=== PATIENT | male | born 1960 | race Caucasian/White ===

== ENCOUNTER → 2016-05-27 | Outpatient (CLI) | payer BC ==
[2016-05-27 10:45] LABS: BASO % 0.7 %; BASO ABS # 0.05 K/uL (0-0.2); COMPLETE YES; EOS % 2.3 %; HEMATOCRIT 43.3 % (42-52); IG% 0.4 %; LYMPH % 22.9 %; LYMPH ABS # 1.71 K/uL (1.2-3.4); MEAN CELL VOLUME 86.9 fL (80-100); MEAN CORPUSCULAR HEMOGLOBIN 29.1 pg (25-34); MEAN CORPUSCULAR HGB CONC 33.5 g/dl (32-36); MEAN PLATELET VOLUME 10.4 fL (7.4-10.4); MONO % 8.4 %; NEUT % 65.3 %; PLATELET COUNT 296 K/uL (130-400); RED BLOOD COUNT 4.98 M/uL (4.7-6.1); WHITE BLOOD COUNT 7.46 K/uL (4.8-10.8)
[2016-05-27 11:00] LABS: ALT/SGPT 27 U/L (12-78); AST/SGOT 16 U/L (15-37); BLOOD UREA NITROGEN 18 mg/dl (7-18); BUN/CREATININE RATIO 16.5 (10-20); CALCIUM 8.8 mg/dl (8.5-10.1); CARBON DIOXIDE 28 mmol/L (21-32); CHLORIDE 106 mmol/L (98-107); CHOLESTEROL 239 mg/dl (0-200); GLUCOSE 92 mg/dl (70-99); SODIUM 143 mmol/L (136-145)
[2016-05-27 11:04] LABS: CHOLESTEROL/HDL RATIO 6.6; HDL CHOLESTEROL 36 mg/dl; LDL CHOLESTEROL CALCULATED 174 mg/dl; TRIGLYCERIDES 146 mg/dl (0-150); VERY LOW DENSITY LIPOPROT CALC 29 mg/dl
== END | disposition home or self-care (01) ==
LOC: C.LABBC 07:45
PROVIDERS: ATTEND Internal Medicine
DX: R06.09 Other forms of dyspnea (principal); Z12.5 Encounter for screening for malignant neoplasm of prostate; E78.5 Hyperlipidemia, unspecified

== ENCOUNTER 2023-02-01 12:10 | Observation (INO) ==
--- NOTE | 2023-01-21 09:32 | Anesthesiology Consultation ---
Date of Service January 21, 2023 Assessment & Plan (1) Encounter for pre-operative examination: Plan - Per printer operator on 01/21/2023: No known infectious disease contacts, current infectious disease symptoms in past 10 days or COVID positive test result in the past 90 days. Chart Review Chart Review: Acceptable Risk for Surgery and Patient NOT seen in Pre Admission Testing History Surgery Operation Date: 02/01/23 07:00 Proposed Procedures p TURP (Transurethral Resection of Prostate) - Mal Galaviz, DO Height/Weight Height: 5 ft 11 in Weight: 88.451 kg Allergies Allergy/AdvReac Type Severity Reaction Status Date / Time atorvastatin AdvReac Mild MUSCLE Verified 01/06/23 13:11 ACHES Medications Home Medications Medication Instructions Recorded Confirmed Last Taken rosuvastatin 5 mg tablet (Crestor) 5 mg PO QAM #90 tabs 03/13/22 01/21/23 Unknown tamsulosin 0.4 mg capsule 0.4 mg PO DAILY #30 caps 03/23/22 01/21/23 Unknown finasteride 5 mg tablet 5 mg PO DAILY #30 tabs 07/28/22 01/21/23 Unknown cholecalciferol (vitamin D3) 25 2,000 unit PO DAILY 09/07/22 01/21/23 Unknown mcg (1,000 unit) capsule Past Medical History Medical History BPH w urinary obs/LUTS Hx of duodenal ulcer AGE 18 Hyperlipidemia Kidney stone hx Motion sickness when on a boat Seasonal allergies Sensorineural hearing loss (SNHL) of right ear with restricted hearing of left ear Past Family History Family History Grandmother (Paternal) Family history of diabetes mellitus Diabetes Mother Cardiac disorder Allergies Stroke Father Lung cancer Brother Hyperlipidemia Hypothyroidism Uncle Myocardial infarction Prostate cancer Denies family history of Ovarian cancer Breast cancer Bleeding disorder Colorectal cancer Past Surgical History Surgical History H/O plastic surgery FROM SERIOUS FACIAL LACERATION-YOUNGER YEARS History of colonoscopy POLYP REMOVED History of herniorrhaphy LEFT INGUINAL HERNIA History of lithotripsy Hx of bilateral cataract extraction Hx of cystoscopy Social History Smoking Status: Former smoker tobacco type: cigarettes Do You Dip or Chew Tobacco: No Smoking End Date: quit 1986 Hx Alcohol Use: Yes Alcohol type: beer and hard liquor alcohol intake frequency: holidays/special occasions only Hx Substance Use: No substance use type: does not use Lab Results Anesthesia Preop Results Results Anesthesia Widget: WBC 6.33 K/ul (4.8-10.8) 01/15/23 Hgb 15.7 g/dl (14.0-18.0) 01/15/23 Hct 47.0 % (42.0-52.0) 01/15/23 Plt 226 K/uL (130-400) 01/15/23 Na 140 mmol/L (136-145) 01/15/23 K 3.9 mmol/L (3.5-5.1) 01/15/23 Cl 102 mmol/L (98-107) 01/15/23 CO2 34 mmol/L (21-32) H 01/15/23 BUN 18 mg/dl (6-23) 01/15/23 Creat 1.13 mg/dl (0.6-1.4) 01/15/23 Glucose Level 87 mg/dl (70-99(Fasting)) 01/15/23 Urine Appearance Clear 01/06/23 Testing Electrocardiogram Date: 01/15/23 NSR, rate 90 bpm Chest X-Ray Date: 01/15/23 No acute process
[~2023-02-01 12:10] MED LIST: LR 15ML/HR IV SCH; ceFAZolin 2000MG 2,000 MG/15 ML SYR IV SCH
--- NOTE | 2023-02-01 12:22 | History & Physical Bridge Note ---
Date of Service February 01, 2023 History & Physical Bridge Note I have examined the patient, reviewed the History & Physical and in the interval since the performance of the History & Physical I have noted the following changes of clinical significance: no changes noted
[2023-02-01] MEDS ORDERED: ONDANSETRON INJ 2 MG/ML 2 ML VIAL IV PRN ×2 (12:23→13:20)
[2023-02-01] MEDS ORDERED: oxyCODONE/ACETAMINOPHEN 5mg/325mg TAB PO PRN (12:23)
[2023-02-01] MEDS ORDERED: PHENAZOPYRIDINE HCL 200 MG TAB PO PRN (12:23)
[2023-02-01] MEDS ORDERED: MoRPHine SULFATE 2 MG/ML CARP IV PRN (12:23)
[2023-02-01] MEDS ORDERED: fentaNYL citrate PF 100 MCG/2 ML VIAL ONE (13:07)
[2023-02-01] MEDS ORDERED: MIDAZOLAM HCL 1 MG/ML 2ML VIAL ONE (13:08)
[2023-02-01] MEDS ORDERED: ePHEDrine sulfate 50 MG/ML AMP IV PRN (13:20)
[2023-02-01] MEDS ORDERED: PROMETHAZINE HCL 12.5 MG in SODIUM CHLORIDE 0.9% 50 ML IV PRN (13:20)
[2023-02-01] MEDS ORDERED: HYDROmorphone INJ 2 MG/ML SYR/VIAL IV PRN (13:20)
[2023-02-01] MEDS ORDERED: fentaNYL citrate PF 100 MCG/2 ML VIAL IV PRN (13:20)
[2023-02-01] MEDS ORDERED: ATROPINE SULFATE 0.1 MG/ML 10ML SYR IV PRN (13:20)
[2023-02-01] MEDS ORDERED: ONDANSETRON INJ 2 MG/ML 2 ML VIAL ONE (13:42)
[2023-02-01] MEDS ORDERED: PROPOFOL IV EMULSION 10 MG/ML 20 ML VIAL IV ONE (13:42)
[2023-02-01] MEDS ORDERED: PHENYLEPHRINE 100MCG/ML 10ML SYR ONE (13:42)
[2023-02-01] MEDS ORDERED: ePHEDrine sulfate 50 MG/5 ML SYR ONE (14:01)
[2023-02-01] MEDS ORDERED: KETOROLAC 30 MG/ML VIAL ONE (14:24)
--- NOTE | 2023-02-01 14:53 | Operative Report ---
PG Post Operative Report Pre & Post Diagnosis Operation Date: 02/01/23 13:40 Pre-Op Diagnosis: Benign Prostate Hypertrophy with Obstruction Post-Op Diagnosis: Benign Prostate Hypertrophy with Obstruction I identified the patient and participated in the time-out.: Yes Procedure Operation Date: 02/01/23 13:40 Actual Procedures p Transurethral Resection of Prostate - Mal Galaviz DO Surgeon Mal Galaviz, II, DO Sailor None Estimated Blood Loss 5 Findings Consistent with Post-Op Diagnosis Large Prostate with obstruction. Specimens Prostate adenoma. Drains 22Fr [address] hematuria Catheter Anesthesia Type General Complications none Disposition Disposition: Recovery Room Indications Patient with obstruction due to prostate enlargement. Risks and benefits discussed at length. Description of Procedure Patient was consented and brought back to the operating room. Patient was placed under anesthesia in the supine position and moved to the dorsal lithotomy position. Patient was prepped and draped in the regular sterile fashion. A time out was completed. A 30degree Cystoscope was placed into the bladder and the entire bladder was examined. The UO's were identified as well as the bladder neck, trigone, dome, and the other important landmarks. The prostatic urethra and large lobes/joe noma was assessed and the veru and bladder neck identified and area/size was assessed. The resection scope was placed and the fine bipolar loop was selected. Starting at the 5 and 7 o'clock positions, a channel was created from bladder neck to the veru. The lateral lobes were then resected from the anterior prostate down. This was resected to capsule fibers. No major bleeding was noted. The Specimen was removed and sent for analysis. The resection bed and any bleeding areas were fulgurated/cauterized and the entire area inspected. All bleeding was controlled. The bladder was inspected a final time. The bladder was emptied and irrigated. All specimen and debris was removed. The scope was removed with the bladder partially full. A catheter was placed and balloon elevated. This was easily irrigated. The patient was cleaned, aroused from anesthesia, and transferred to the pacu in stable condition having tolerated the procedure well with no complications. I was present and participated in all aspects of the procedure. The patient will be monitored in the PACU until transferred. Plan catheter removal in approx 7-10 days in office after discharge. I attest to the content of the Intraoperative Record and any orders documented therein. Any exceptions are noted below.
--- NOTE | 2023-02-01 16:39 | Anesthesiology Progress Note ---
Date of Service February 01, 2023 Anesthesia Post Procedure Vital Signs Vital Signs: Temp Pulse Pulse Resp BP Pulse Ox O2 Del Method 02/01/23 16:30 36.7 C 74 14 92/58 L 92 Room Air 02/01/23 16:00 36.7 C 72 14 91/54 L 92 Room Air 02/01/23 15:50 36.7 C 74 10 L 92/57 L 93 Room Air 02/01/23 15:40 36.7 C 78 14 95/62 L 94 Room Air 02/01/23 15:10 87 25 H 103/69 100 Oxymask 02/01/23 15:30 36.7 C 79 19 95/57 L 94 Room Air 02/01/23 15:20 85 11 L 110/68 98 Oxymask 02/01/23 15:00 90 10 L 111/72 100 Oxymask 02/01/23 14:53 36.5 C 110 H 14 103/70 97 Oxymask 02/01/23 12:24 36.6 C 95 H 20 128/84 98 Room Air O2 Flow Rate 02/01/23 16:30 02/01/23 16:00 02/01/23 15:50 02/01/23 15:40 02/01/23 15:10 2 02/01/23 15:30 02/01/23 15:20 2 02/01/23 15:00 3 02/01/23 14:53 5 02/01/23 12:24 Transfer of Care Handoff Completed per policy Notes Mental Status: alert / awake / arousable and participated in evaluation Patient Amnestic to Procedure: Yes Nausea / Vomiting: adequately controlled Pain: adequately controlled Airway Patency, RR, SpO2: stable & adequate BP & HR: stable & adequate Hydration State: stable & adequate Anesthetic Complications: no major complications apparent and Pt Satisfied with anesthetic care
[2023-02-01 18:28] LABS: Basophils # (auto) 0.06 K/uL (0.00-0.20); Basophils % (auto) 0.5 %; Eosinophils # (auto) 0.06 K/uL (0.00-0.50); Eosinophils % (auto) 0.5 %; Hematocrit (blood only) 40.7 % (42.0-52.0); Hemoglobin 13.8 g/dl (14.0-18.0); Immature Granulocytes # (auto) 0.03 K/uL (0.01-0.20); Immature Granulocytes % (auto) 0.3 %; Lymphocytes # (auto) 0.89 K/uL (1.20-3.40); Lymphocytes % (auto) 7.8 %; Mean Corpuscular Hemoglobin 29.5 pg (25.0-34.0); Mean Corpuscular Hgb Conc 33.9 g/dL (32.0-36.0); Mean Platelet Volume 10.9 fL (9.4-12.4); Monocytes # (auto) 0.42 K/uL (0.11-0.59); Monocytes % (auto) 3.7 %; Neutrophils # (auto) 9.98 K/uL (1.40-6.50); Neutrophils % (auto) 87.2 %; Platelet Count 199 K/uL (130-400); RDW Coefficient of Variation 13.2 % (11.5-14.5); RDW Standard Deviation 41.5 fL (36.4-46.3); Red Blood Count 4.68 M/uL (4.70-6.10); White Blood Count 11.44 K/ul (4.8-10.8)
[2023-02-01] MEDS: SODIUM CHLORIDE 0.9% 1,000 ML IV SCH (18:28)
[2023-02-01] MEDS: TAMSULOSIN HCL 0.4 MG CAP PO SCH (18:32)
[2023-02-01 18:41] LABS: Albumin Globulin Ratio 1.6 (0.9-2); Albumin Level 4.1 gm/dl (3.4-5.0); BUN Creatinine Ratio 11.7 (10-20); Bilirubin,Total 0.5 mg/dl (0.2-1.0); Calcium 8.5 mg/dl (8.6-10.3); Creatinine Clr Calc Pharmacy 75.4 ml/min; Est GFR (African American) 83.2 ml/min; Est GFR (Non-African American) 71.8 ml/min; Globulin 2.5 gm/dl (2.5-4.0); Potassium 4.2 mmol/L (3.5-5.1); Total Protein 6.6 gm/dl (6.0-8.3)
[2023-02-01] MEDS: DOCUSATE SODIUM 100 MG CAP PO SCH (21:52)
[2023-02-01] MEDS: ceFAZolin 2000MG 2,000 MG/15 ML SYR IV SCH (21:52)
[2023-02-01] MEDS: oxyBUTYnin chloride 5 MG TAB PO PRN (21:52)
[2023-02-02] MEDS: ceFAZolin 2000MG 2,000 MG/15 ML SYR IV SCH ×2 (05:29→13:41)
[2023-02-02] MEDS: SODIUM CHLORIDE 0.9% 1,000 ML IV SCH (08:01)
[2023-02-02] MEDS: DOCUSATE SODIUM 100 MG CAP PO SCH (08:27)
[2023-02-02] MEDS: TAMSULOSIN HCL 0.4 MG CAP PO SCH (08:28)
[2023-02-02] MEDS: oxyBUTYnin chloride 5 MG TAB PO PRN (08:29)
[2023-02-02] MEDS ORDERED: ROSUVASTATIN CALCIUM 5 MG TAB PO SCH (09:00)
--- NOTE | 2023-02-02 09:49 | Urology Progress Note ---
Date of Service February 02, 2023 Assessment & Plan (1) BPH w urinary obs/LUTS: Plan - Pt POD#1 s/p TURP with Dr. Galaviz. - Doing well, progressing as expected - Afebrile and hemodynamically stable. - Labs reviewed 02/01 WBC 11.44, hemoglobin 13.8, creatinine 1.11. - 3 way Leone catheter intact, patent and draining clear yellow urine with CBI on slow. - CBI clamped @0900- will reassess later this AM. - Encourage ambulation. - Maintain Leone catheter. - Anticipate home with Leone catheter later today presuming urine appropriate and he continues to progress as expected. Admission and Anticipated Discharge Date Admission Date: February 01, 2023 Subjective Patient examined at bedside this AM. Awake, resting in bed on arrival. No acute distress. Leone intact, draining clear yellow urine with CBI on slow drip. Denies fevers, chills, nausea, vomiting. Tolerating diet. Reports some mild dysuria. Denies significant pain. Review of Systems Constitutional: as per Subjective / HPI Gastrointestinal: as per Subjective / HPI Genitourinary: + as per Subjective / HPI Physical Exam Constitutional: no acute distress Respiratory: no respiratory distress and no labored breathing Skin: No visible rashes or lesions to exposed skin areas Neurologic: moves all extremities and awake Psychiatric: A+Ox3, euthymic affect Genitourinary: Leone catheter intact, draining clear urine with CBI on slow drip Results & Data Vital Signs (Past 12 Hours) Vital Signs Temp Pulse Resp BP Pulse Ox O2 Del Method 02/02/23 07:37 36.4 C L 78 14 104/66 96 Room Air 02/02/23 01:24 36.7 C 66 16 97/60 L 95 Room Air PG Care Time/CCT Total # of Minutes Spent Total Time Spent with Patient: Total time spent is greater than 50% in coordination of care (as documented) at patient's floor/unit and/or counseling patient: Coding Level of Care Code None Diagnoses BPH w urinary obs/LUTS N40.1; N13.8
--- NOTE | 2023-02-02 15:00 | Discharge Summary ---
Date of Service February 02, 2023 Admission HPI Per Admitting Provider 62-year-old male with BPH with urinary obstruction/LUTS admitted for transurethral resection of the prostate with Dr. Galaviz Admission Exam Per Admitting Provider General: Alert in no acute distress. HEENT: Inspection normal Psychologic: Normal affect. Respiratory: Nonlabored. No use of accessory muscles. Skin: [place] and Dry. No rashes or visible lesions. Principal Diagnosis BPH with urinary obstruction/LUTS Discharge Exam Constitutional no acute distress Respiratory no respiratory distress and no labored breathing Neurologic moves all extremities and awake Psychiatric A+Ox3, euthymic affect Genitourinary Leone catheter intact, urine is orange-colored Discharge Data Allergies Allergy/AdvReac Type Severity Reaction Status Date / Time atorvastatin AdvReac Mild MUSCLE Verified 02/01/23 12:23 ACHES Procedures Performed Operation Date: 02/01/23 13:40 Actual Procedures p Transurethral Resection of Prostate - Mal Galaviz DO Hospital Course (1) BPH w urinary obs/LUTS: Plan 62-year-old male with a history of BPH with urinary obstruction/LUTS admitted status post transurethral resection of the prostate. Patient tolerated procedure well. No acute issues postoperatively. He remained afebrile and hemodynamically stable. Postoperative labs were appropriate. CBI clamped on postop day #1. Leone draining well off CBI, urine was orange colored due to Pyridium. No clots noted. Tolerated diet. Reported minimal pain. Ambulated without issue. Patient was discharged home on postop day #[address] with [address] catheter in place. He was in stable condition at time of discharge. Discharge instructions were reviewed, all questions were answered. Total Time Total Time Spent Total Time Spent (In Minutes): 15 Discharge Plan Discharge Items Patient Disposition: Home - Self-Care Reason For Visit: BPH WITH OBSTRUCTION Discharge Diagnosis: BPH with obstruction Activity: Per Instructions section Lifting: No more than 25 pounds Bathing Comment: Ok to shower. No tub baths or soaks. Non-emergency contact: Surgeon and Urologist Call non-emergency contact if: you have any medication questions, your pain is not controlled and you have a fever Follow-up/Referrals: ProJasen MD [Primary Care Provider] - Mal Galaviz DO [Physician] - Diet: Regular Addtl Attending Provider Instructions: Please take all medications as prescribed and keep all follow-ups as scheduled. Please call our office at [phone] with any questions, concerns or need to reschedule appointments for any reason. We are happy to assist you. The urology office will contact you to arrange a follow-up visit. Tips for your recovery at home: Dont be alarmed by brownish or reddish blood or clots in your urine. This is a result of the procedure. This may occur off and on for weeks to months after the procedure but should continue to improve. Drink plenty of fluids during the day (enough to keep your urine very light colored). This will help keep a healthy flow of urine. Do not lift >25 lbs until your followup Avoid constipation. Please use a stool softener (Colace) for the first two weeks after your procedure Be sure to finish the antibiotics as prescribed. If you go home with a catheter, please wash tubing where it enters your body twice daily with mild soap (Dove or Dial). Once your catheter is removed, expect some blood in your urine and some burning when you urinate. You should have an appointment to have this removed, if you do not please call our office to arrange. When to call [facility] at [phone]: Your urine contains heavy blood clots or the catheter is not draining You are constantly leaking urine Fever of 101F or higher, chills, nausea, or vomiting Your pain is not relieved with medication Pending Studies at Discharge: Yes (pathology) Stand-Alone Forms: My [facility] [place], Smoking Cessation Medications and DC Order Prescriptions: New docusate sodium [Colace] 100 mg capsule 100 mg PO BID Qty: 30 0RF Rx Instructions: Take twice daily for 2 weeks, then as needed thereafter phenazopyridine [Pyridium] 200 mg tablet 200 mg PO BID PRN (Reason: bladder pain) Qty: 6 0RF cephalexin 500 mg capsule 500 mg PO BID 5 Days Qty: 10 0RF Continued rosuvastatin [Crestor] 5 mg tablet 5 mg PO QAM Qty: 90 3RF tamsulosin 0.4 mg capsule 0.4 mg PO DAILY Qty: 30 11RF finasteride 5 mg tablet 5 mg PO DAILY Qty: 30 11RF cholecalciferol (vitamin D3) 25 mcg (1,000 unit) capsule 2,000 unit PO DAILY Discharge Orders: Discharge Order (Routine); Ordered 02/02/23 Ordered By: Le Don/Other Patient Handouts: Indwelling Urinary Catheter Dc, Leg Bag Care Dc, ED Leone Catheter, Care Admission Data Admit Date/Time: 02/01/23 12:23 Attending Provider: Mal Galaviz Admit Provider: Mal Galaviz Primary Care Provider: Jasen Ty Other Interventions: Discharge Summary Assessment (RN) Last Done: 02/02/23 15:04 Coding Level of Care Code 89902 IN/OBS DISCH 30 MIN/LESS Diagnoses BPH w urinary obs/LUTS N40.1; N13.8
== END 2023-02-02 15:18 | disposition home or self-care (01) ==
LOC: ASU 12:10 → 3W 12:10